=== PATIENT | female | born 2005 | race Caucasian/White ===

== ENCOUNTER 2024-01-03 12:12 | Emergency (ER) | payer OTHER, SELFPAY ==
[2024-01-03 12:16] VITALS: BP 114/81; PULSE 83; TEMP 36.7; O2SAT 100; BMI 19.4
--- NOTE | 2024-01-03 12:31 | ED.GENADUL1 ---
HPI HPI - General Adult General Chief complaint: Headache Stated complaint: DIZZINESS/SYNCOPE Time Seen by Provider: 01/03/24 12:19 Source: patient Mode of arrival: walk-in Limitations: no limitations History of Present Illness HPI narrative: Patient presents to the ED complaining of a headache. She said she woke up with a headache this morning which is not unusual for her to have migraines but it has been a while.She said she went into the bathroom and was vomiting and then she passed out. She said she did go all the way down to the ground but did not get hurt. Denies head injury neck pain or any other pain.She got a piercing in the past in her ear that helps with her migraines and has not had any migraines since she got this piercing but states that she woke up today with what feels like her previous migraines. She said in the past either 600 or 800 mg Motrin's would work for her headache. She did not take anything this morning for the pain. She ambulated into ED in no acute distress. Alert and oriented x 3 and here with family. Severity: moderate Quality: Reports aching Pain Consistency: Reports constant Relieving factors: Reports none Exacerbating factors: Reports other (LightAnd sound) Associated symptoms: Reports nausea/vomiting Related Data Previous Rx's ?Medication ?Instructions ?Recorded ibuprofen 800 mg tablet 800 mg PO Q8H PRN pain #15 tabs 01/03/24 ondansetron 4 mg disintegrating 4 mg PO DAILY PRN nausea and 01/03/24 tablet vomiting #15 tabs Allergies Allergy/AdvReac Type Severity Reaction Status Date / Time No Known Drug Allergies Allergy Verified 01/03/24 12:16 Opioid HPI Opioid Management Most Recent Opioid Data: Last Pain Scale 5 01/03/24 14:04 Last MAR Pain Assessment 01/03/24 14:04 Review of Systems ROS Status of ROS 10 or more systems reviewed and unremarkable except as noted in history and below Constitutional Denies: fever or chills Eyes Reports: light sensitivity; Denies: change in vision Cardiovascular Denies: chest pain or palpitations Respiratory Denies: shortness of breath Gastrointestinal Reports: nausea and vomiting; Denies: abdominal pain Musculoskeletal Denies: neck pain Neurological Reports: headache and dizziness (Lightheaded); Denies: numbness in extremities, weakness in extremities, lack of coordination or confusion Exam Constitutional Vital Signs, click to edit/add: Last Vital Signs Temp 98.1 F 01/03/24 12:16 Pulse 83 01/03/24 12:16 Resp 16 01/03/24 12:16 BP 114/81 01/03/24 12:16 Pulse Ox 100 01/03/24 12:16 Documenting provider has reviewed patient's vital signs: yes Common normals: no apparent distress General appearance: cooperative and comfortable Orientation/consciousness: Yes awake, Yes oriented to person, Yes oriented to place and Yes oriented to time HENMT Common normals: normocephalic Head and scalp: atraumatic Mouth: oral and palatal mucosa normal Eye Common normals: PERRL, EOMs intact bilaterally, conjunctivae normal, no scleral icterus and normal visual [place] by confrontation Neck & C-Spine Common normals: full ROM and supple Respiratory Common normals: normal respiratory effort Auscultation: clear to auscultation bilaterally Cardio Common normals: regular rate, regular rhythm and no murmurs GI Common normals: Normal to inspection, nondistended, normoactive bowel sounds present, soft to palpation and non-tender Extremity Common normals: normal to inspection, full ROM and normal capillary refill Neuro Common normals: oriented x3, CN's II-XII intact bilaterally, moves all extremities, no focal motor deficits and no sensory deficits noted Course Reevaluation(s) Reevaluation #1: I checked on the patient shortly after she was given her medication and she said her vision was blurry. She was however resting in the bed comfortably and vitals remained stable and she was alert and oriented x 3 Time: 12:54 Reevaluation #2: I checked on the patient again and she was feeling much better. She was resting comfortably in the bed. She said her pain was improving. Lab was in and had a successful lab draw, labs are pending at this time. Time: 13:32 Reevaluation #3: Patient still states she has headache pain 5 out of 10 and mild nausea. She said usually they give her 800 mg of ibuprofen and her headache improves however she is concerned about taking ibuprofen with the nausea and may cause vomiting. At this time I will do another dose of Toradol and 4 of Zofran for the pain and nausea. When I went in the room she was sleeping. Time: 13:58 Vital Signs Vital signs: Vital Signs Temperature 98.1 F 01/03/24 12:16 Pulse Rate 83 01/03/24 12:16 Respiratory Rate 16 01/03/24 12:16 Blood Pressure 114/81 01/03/24 12:16 Pulse Oximetry 100 01/03/24 12:16 Temperature 98.1 F 01/03/24 12:16 Pulse Rate 83 01/03/24 12:16 Respiratory Rate 16 01/03/24 12:16 Blood Pressure 114/81 01/03/24 12:16 Pulse Oximetry 100 01/03/24 12:16 Medical Decision Making MDM Narrative Medical decision making narrative: Patient received her second dose of Toradol and a dose of Zofran. Again she was resting comfortably on her side and she said she was feeling better now. The Zofran helped the nausea and the second dose of Toradol helped her pain. She said she feels comfortable and at a point that she could head home. She is out of her 800 mg ibuprofen at home so I will write her prescription for that as well as some Zofran in case she continues with some nausea. She was instructed to follow-up with a family doctor for further evaluation of her headaches. Of course return to the emergency room if any worsening pain neurological changes vision changes vomiting or any further concerns arise Differential Diagnosis Differential Diagnosis: Migraine headache viral syndrome neurological abnormality Medical Records Medical records reviewed: Yes I reviewed the patient's medical records Lab Data Lab results reviewed: Yes I reviewed the patient's lab results Labs: Lab Results 01/03/24 01/03/24 Range/Units 13:08 13:18 WBC 10.7 (4.0-11.0) 10^3/uL RBC 4.50 (4.20-5.40) 10^6/uL Hgb 13.5 (12.0-16.0) g/dL Hct 40.7 (36.0-48.0) % MCV 90.4 (81.0-99.0) fL MCH 30.0 (26.7-34.0) pg MCHC 33.2 (29.9-35.2) g/dL RDW 11.8 (11.0-15.0) % Plt Count 202 (150-450) 10^3/uL MPV 12.6 (9.5-13.5) fL Neut % (Auto) 75.3 H (43.0-75.0) % Lymph % (Auto) 16.9 L (20.5-60.0) % [place] % (Auto) 6.4 (1.7-12.0) % Eos % (Auto) 0.8 L (0.9-7.0) % Baso % (Auto) 0.3 (0.2-2.0) % Neut # (Auto) 8.1 H (1.4-6.5) 10^3/uL Lymph # (Auto) 1.8 (1.2-3.8) 10^3/uL [place] # (Auto) 0.7 (0.3-0.8) 10^3/uL Eos # (Auto) 0.1 (0.0-0.7) 10^3/uL Baso # (Auto) 0.0 (0.0-0.1) 10^3/uL Abs Immat Gran (auto) 0.03 (0.00-0.03) 10^3/uL Imm/Tot Granulo (auto) 0.3 (0.0-0.5) % Sodium 138 (136-145) mmol/L Potassium 3.8 (3.5-5.1) mmol/L Chloride 105 (98-107) mmol/L Carbon Dioxide 25.7 (21.0-32.0) mmol/L Anion Gap 11.1 BUN 10.0 (7.0-18.0) mg/dL Creatinine 0.71 (0.55-1.02) mg/dL Est GFR ( Amer) >60 (>=60) Est GFR (Non-Af Amer) >60 (>=60) BUN/Creatinine Ratio 14.1 Glucose 81 (74-106) mg/dL Calcium 8.9 (8.5-10.1) mg/dL Total Bilirubin 0.5 (0.2-1.0) mg/dL AST 15 (15-37) U/L ALT 25 (14-59) U/L Alkaline Phosphatase 64 (46-116) U/L Total Protein 7.6 (6.4-8.2) g/dL Albumin 4.1 (3.4-5.0) g/dL Globulin 3.5 g/dL Albumin/Globulin Ratio 1.2 Urine Color Yellow (YELLOW) Urine Clarity Clear (CLEAR) Urine pH 8.5 (5.0-9.0) Ur Specific [place] 1.020 (1.005-1.025) Urine Protein Negative (NEG/TRACE) mg/dL Urine Glucose (UA) Negative (NEGATIVE) mg/dL Urine Ketones Negative (NEGATIVE) mg/dL Urine Occult Blood Negative (NEGATIVE) Urine Nitrite Negative (NEGATIVE) Urine Bilirubin Negative (NEGATIVE) Urine Urobilinogen 0.2 (0.2-1.0) EU/dL Ur Leukocyte Esterase Negative (NEGATIVE) Urine HCG, Qual Negative (NEGATIVE) ECG Data Attestation: I personally reviewed and interpreted this ECG as follows: (Time of EKG 1251. Rate 83.Normal sinus rhythm no acute ST elevation or depression) Prior ECG tracings: not available for review Discharge Plan Discharge Stand Alone Forms: Portal Instructions Chief Complaint: Headache Clinical Impression: Headache Patient Disposition: Home, Self-Care Time of Disposition Decision: 14:20 Mode of Transportation: Private Vehicle Prescriptions / Home Meds: New ibuprofen 800 mg tablet 800 mg PO Q8H PRN (Reason: pain) Qty: 15 0RF ondansetron 4 mg tablet,disintegrating 4 mg PO DAILY PRN (Reason: nausea and vomiting) Qty: 15 0RF Print Language: Macedonian Instructions: Acute Headache (ED) Referrals: Physician,Non-Staff, MD [Primary Care Provider] - 1 week
--- NOTE | 2024-01-03 12:32 | ECG_ITS ---
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
[2024-01-03] MEDS: 0.9 % SODIUM CHLORIDE 1,000 ML 999 ML IV (12:41)
[2024-01-03] MEDS: KETOROLAC TROMETHAMINE 30 MG/ML VIAL 15 MG IVP ×2 (12:42→14:04)
[2024-01-03] MEDS: DIPHENHYDRAMINE HCL 50 MG/ML (1ML) VIAL 25 MG IV (12:42)
[2024-01-03] MEDS: METOCLOPRAMIDE HCL 10 MG/2 ML VIAL 5 MG IVP (12:43)
[2024-01-03 13:28] LABS: Bilirubin Urine NEGATIVE (NEGATIVE); Blood Urine NEGATIVE (NEGATIVE); Clarity Urine CLEAR (CLEAR); Color Urine YELLOW (YELLOW); Glucose Urine UA NEGATIVE (NEGATIVE); Ketones Urine NEGATIVE (NEGATIVE); Leukocyte Esterase Urine NEGATIVE (NEGATIVE); Nitrite Urine NEGATIVE (NEGATIVE); Protein Urine NEGATIVE (NEG/TRACE); Urobilinogen Urine 0.2 EU/dL (0.2-1.0); pH Urine 8.5 (5.0-9.0)
[2024-01-03 13:29] LABS: Basophils Percent Auto 0.3 % (0.2-2.0); Eosinophils Absolute Auto 0.1 10^3/uL (0.0-0.7); Eosinophils Percent Auto 0.8 % (0.9-7.0); Hematocrit 40.7 % (36.0-48.0); Hemoglobin 13.5 g/dL (12.0-16.0); Immature Granulocytes Abs Auto 0.03 10^3/uL (0.00-0.03); Immature Granulocytes Pct Auto 0.3 % (0.0-0.5); Lymphocytes Absolute Auto 1.8 10^3/uL (1.2-3.8); Lymphocytes Percent Auto 16.9 % (20.5-60.0); Mean Corpuscular HGB Conc 33.2 g/dL (29.9-35.2); Mean Corpuscular Volume 90.4 fL (81.0-99.0); Mean Platelet Volume 12.6 fL (9.5-13.5); Monocytes Absolute Auto 0.7 10^3/uL (0.3-0.8); Monocytes Percent Auto 6.4 % (1.7-12.0); Neutrophils Absolute Auto 8.1 10^3/uL (1.4-6.5); Neutrophils Percent Auto 75.3 % (43.0-75.0); Platelet Count 202 10^3/uL (150-450); Red Cell Distribution Width 11.8 % (11.0-15.0); White Blood Count 10.7 10^3/uL (4.0-11.0)
[2024-01-03 13:30] LABS: HCG Qualitative Urine* NEGATIVE (NEGATIVE)
[2024-01-03 13:31] LABS: Urine Microscopic Indicated NO
[2024-01-03 13:39] LABS: Alanine Aminotransferase 25 U/L (14-59); Albumin Globulin Ratio 1.2; Albumin Level 4.1 g/dL (3.4-5.0); Alkaline Phosphatase 64 U/L (46-116); Anion Gap 11.1; Aspartate Amino Transferase 15 U/L (15-37); BUN Creatinine Ratio 14.1; Bilirubin Total 0.5 mg/dL (0.2-1.0); Calcium 8.9 mg/dL (8.5-10.1); Carbon Dioxide 25.7 mmol/L (21.0-32.0); Chloride 105 mmol/L (98-107); Estimated GFR (African America >60 (>=60); Estimated GFR (Non-African Ame >60 (>=60); Globulin 3.5 g/dL; Glucose 81 mg/dL (74-106); Potassium 3.8 mmol/L (3.5-5.1); Sodium 138 mmol/L (136-145); Total Protein 7.6 g/dL (6.4-8.2)
[2024-01-03] MEDS: ONDANSETRON PF 4 MG/2 ML VIAL IV (14:04)
[2024-01-03 14:18] VITALS: BP 104/53; PULSE 74; O2SAT 100
== END 2024-01-03 14:30 | disposition home or self-care (01) ==
PROVIDERS: Emergency Provider Emergency Medicine
DX: R51.9 Headache, unspecified (principal)
CPT/HCPCS: 36415; 80053; 81003; 84703; 85025; 93005; 96361; 96374; 96375; 96376; 99284